=== PATIENT | female | born 1940 | race Caucasian/White ===

== ENCOUNTER → 2017-11-10 | Outpatient (CLI) | payer MEDICARE, OTHER ==
[~2017-11-10] MED LIST: ACYCLOVIR 400400 MG PO; ANASPAZ0.125 MG SL; ANTIVERT25 MG PO; AUGMENTIN 875875 MG PO; AZELASTINE137 MCG/0.; BENEFIBER1 EAC1; CALCIUM 600 +1 EAC1; CENTRUM SILVER1 EAC2; COZAAR 25 MG TA25 M2 PO; DIPHENHIST50 MG; DOXYCYCLINE 10100 M1 PO; DULERA 100 MCG/13 GM; FISH OIL 1,001000 M2; FLONASE 0.05%50 MCG; GABAPENTIN 100100 MG PO; IPRATROPIUM BRO15 ML; LOPERAMIDE 2 MG2 M1; PATADAY2.5 ML; PROBIOTIC1 EAC1; SINGULAIR 10 MG10 M1 PO; SYSTANE 0.3-0.1 EACH; TRAMADOL 50 MG50 MG PO; TYLENOL325 MG; VENTOLIN HFA 1818 GM; VITAMIN D3400 UNIT; ZOFRAN ODT4 MG PO
--- NOTE | 2017-11-10 17:16 | 2DMMODE ---
[place] [address] 2 D/M-MODE ECHOCARDIOGRAM Name: TANIA LEONG Room: [facility]#: [id number] Admission: 11/10/17 Attend Phys: Kalpana Langston Discharge: Date of : 44 Date of Service: 11/10/17 1716 Report #: [id number] THIS REPORT FOR: //name// APPROVED REPORT Study performed: 11/10/2017 13:48:26 EXAM: Comprehensive 2D, Doppler, and color-flow Echocardiogram Patient Location: Out-Patient Status: routine BSA: 1.91 HR: 80 bpm BP: 140/86 mmHg Other Information Study Quality: Good Indications Hypertension/HDD 2D Dimensions LVEF(%): 80.52 (>50%) IVSd: 10.75 (7-11mm) LVOT Diam: 20.82 (18-24mm) LVDd: 35.83 mm PWd: 9.81 (7-11mm) Ascending Ao: 26.37 (22-36mm) LVDs: 18.54 (25-40mm) Aortic Root: 29.47 mm Alvarado's LVEF: 80.52 % Volumes Left Atrial Volume (Systole) LA ESV Index: 7.60 mL/m2 Aortic Valve AoV Peak Collin.: 1.39 m/s AO Peak Gr.: 7.77 mmHg LVOT Max P.11 mmHg AO Mean Gr.: 4.44 mmHg LVOT Mean P.56 mmHg LVOT Max V: 0.88 m/s AO V2 VTI: 26.29 cm LVOT Mean V: 0.57 m/s OSCAR (VTI): 2.32 cm2 LVOT V1 VTI: 17.89 cm Mitral Valve E/A Ratio: 0.70 MV Decel. Time: 368.81 [place] [address] 2 D/M-MODE ECHOCARDIOGRAM Name: TANIA LEONG Room: [facility]#: [id number] Admission: 11/10/17 Attend Phys: Kalpana Langston Discharge: Date of : 44 Date of Service: 11/10/17 1716 Report #: [id number] MV E Max Collin.: 0.53 m/s MV PHT: 106.95 ms MVA (PHT): 2.06 cm2 TDI E/Lateral E': 5.89 E/Medial E': 5.30 Medial E' Collin.: 0.10 m/s Lateral E' Collin.: 0.09 m/s Pulmonary Valve PV Peak Collin.: 0.86 m/s PV Peak Gr.: 2.93 mmHg Tricuspid Valve TR Peak Gr.: 33.78 mmHg RVSP: 38.78 mmHg Left Ventricle The left ventricle is normal size. There is normal LV segmental wall motion. There is normal left ventricular wall thickness. Left ventricular systolic function is vigorous. LVEF is >70%. Grade I - abnormal relaxation pattern. Right Ventricle The right ventricle is normal size. The right ventricular systolic function is normal. Atria The left atrium size is normal. The right atrium size is normal. Aortic Valve The aortic valve is normal in structure. No aortic regurgitation is present. There is no aortic valvular stenosis. Mitral Valve The mitral valve is normal in structure. There is no mitral valve regurgitation noted. No evidence of mitral valve stenosis. Tricuspid Valve The tricuspid valve is normal in structure. Mild tricuspid regurgitation. The RVSP is _38.8 mmHg. Pulmonic Valve The pulmonary valve is normal in structure. There is no pulmonic valvular regurgitation[place] [address] 2 D/M-MODE ECHOCARDIOGRAM Name: TANIA LEONG Room: [facility]#: [id number] Admission: 11/10/17 Attend Phys: Kalpana Langston Discharge: Date of : 44 Date of Service: 11/10/17 1716 Report #: [id number] The aortic root is normal in size. IVC is normal in size and collapses with >50% inspiration Pericardium There is no pericardial effusion. <Conclusion> Normal echocardiogram. The left ventricle is normal size. There is normal left ventricular wall thickness. Left ventricular systolic function is vigorous. LVEF is >70%. Grade I - abnormal relaxation pattern. Mild tricuspid regurgitation. The RVSP is _38.8 mmHg. IVC is normal in size and collapses with >50% inspiration <ELECTRONICALLY SIGNED> By: Martin Cristobal MD, FACC 11/10/171715 15 15 Martin Cristobal MD, FACC /INF
== END ==
LOC: M.CRD 13:39
DX: I07.1 Rheumatic tricuspid insufficiency (principal)

== ENCOUNTER → 2020-04-20 | Outpatient (CLI) | payer MEDICARE, OTHER | LOC: M.ULTRA 12:38 | PROVIDERS: ATTEND Nurse Practitioner Family | DX: M79.605 Pain in left leg (principal); R20.2 Paresthesia of skin; I73.9 Peripheral vascular disease, unspecified ==